=== PATIENT | male | born 1995 | race Hispanic/Latino ===

== ENCOUNTER 2020-05-15 15:50 | Emergency (ER) | payer OTHER | END 2020-05-15 16:45 | disposition home or self-care (01) | LOC: ERS 15:50 → EDBD 15:50 → ERS 16:45 | DX: Z20.828 Contact with and (suspected) exposure to other viral communicable diseases (principal); F17.290 Nicotine dependence, other tobacco product, uncomplicated | CPT/HCPCS: 87635; 99283; U0003 ==